=== PATIENT | male | born 1985 | race Caucasian/White ===

== ENCOUNTER 2019-05-11 00:46 | Emergency (ER) | payer OTHER ==
[~2019-05-11] VITALS: Ht 175.3 cm; Wt 86.4 kg
[2019-05-11 02:12] VITALS: BP 128/74
--- NOTE | 2019-05-11 07:22 | ECGEPIP ---
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
--- NOTE | 2019-05-11 08:02 | REP ---
Clinical: Chest pain and shortness of breath. Technique: PA and lateral. Findings: No acute consolidation, effusion, or pneumothorax. Mediastinum and cardiac silhouette are normal. Skeletal structures are intact. Impression: Normal chest x-ray. No acute process. Electronically Signed by Adis Anders MD 05/11/2019 07:53 A
== END 2019-05-11 02:14 | disposition home or self-care (01) ==
LOC: M ED 00:46
DX: R06.02 Shortness of breath (principal); R07.89 Other chest pain; R00.1 Bradycardia, unspecified